=== PATIENT | male | born 1990 | race Caucasian/White ===

== ENCOUNTER 2018-09-20 05:09 | Emergency (ER) | payer SELFPAY ==
[2018-09-20] MEDS ORDERED: 0.9 % SODIUM CHLORIDE 1,000 ML IV ONE ×2 (05:34→06:00)
--- NOTE | 2018-09-20 06:02 | ED Physician Documentation ---
General Adult - HISTORIAN Historian: patient - HPI Stated Complaint: n/v Chief Complaint: Near Syncope Onset: other (unsure of time ) Timing: better Severity: mild Further Comments: yes (He states he did "some coke and 2-3 joints tonight" and then had some n/v and dizziness. He states he still "feels tired" but no other complaints currently . At one point after taking med he did tell the nurse he felt his heart "flutter" but denies any current chest pain or other complaints) Last known Well Code/Unknown Code: Unknown - ROS CONST: no problems NEURO/PSYCH: dizziness - PAST HX Past History: other (anxiety ) Immunizations: UTD Allergies/Adverse Reactions: Allergies Allergy/AdvReac Type Severity Reaction Status Date / Time No Known Allergies Allergy Verified 09/20/18 06:03 Home Medications: Ambulatory Orders Medication Instructions Recorded Lamotrigine [Lamictal Xr] 300 mg PO D 09/20/18 Trazodone HCl [Desyrel] 100 mg PO HS 09/20/18 Venlafaxine HCl [Effexor] 300 mg PO D 09/20/18 - SOCIAL HX Smoking History: cigarettes Alcohol Use: occasionally Drug Use: cocaine, marijuana - FAMILY HX Family History: No - VITAL SIGNS Vital Signs: Vital Signs Temp Pulse Resp BP Pulse Ox 97.8 F 82 18 101/60 96 09/20/18 05:09 09/20/18 05:09 09/20/18 05:09 09/20/18 05:09 09/20/18 05:09 - REVIEWED ASSESSMENTS Nursing Assessment Reviewed: Yes Vitals Reviewed: Yes Progress - Progress Progress: 0655: sleeping in room DG ED Results Lab/Radiology - Radiology Radiology Impressions: Chest, PA and lateral History: Irregular heart rate Findings: No infiltrate, effusion or pneumothorax is present. Heart size, mediastinum and pulmonary vascularity are normal. Impression: No active pulmonary disease. Electronically signed on Sep 20, 2018 6:33:59 AM POISON INFORMATION SPECIALIST by: David Millan - Orders Orders: ED Orders Category Date Time Status IV Started NOW Care 09/20/18 06:00 Ordered CHEST 2VIEW [RAD] Stat Exams 09/20/18 Ordered ALCOHOL MEDICAL USE ONLY Stat Lab 09/20/18 Ordered CBC/PLATELET/DIFF Stat Lab 09/20/18 06:00 Ordered CMP Stat Lab 09/20/18 06:00 Ordered UDS [DRUG SCREEN URINE MEDICAL ONLY] Routine Lab 09/20/18 Ordered 0.9 % Sodium Chloride [Normal Saline] 1,000 ml Med 09/20/18 05:34 Discontinued IV .STK-MED NORMAL SALINE @ 1000 MLS/HR ( 1000ml BOLUS) Med 09/20/18 06:00 Ordered 0.9 % Sodium Chloride [Normal Saline] 1,000 ml IV Q1H EKG WITH COMPARISON Stat Ther 09/20/18 Ordered General Adult Physical Exam - PHYSICAL EXAM GENERAL APPEARANCE: no distress EENT: eye inspection normal, no signs of dehydration NECK: normal inspection RESPIRATORY: no resp distress, chest non-tender, breath sounds normal CVS: reg rate & rhythm, heart sounds normal, equal pulses ABDOMEN: soft, normal bowel sounds, no distension BACK: normal inspection, no CVA tenderness SKIN: warm/dry, normal color EXTREMITIES: non-tender, normal range of motion, no evidence of injury, no edema NEURO: oriented X3 Discharge Clincal Impression: Cocaine use Referrals: Thomas Burk MD [Primary Care Provider] - 2 Days Comments: 1. Dont do drugs 2. Increase fluids 3. Follow up with PCP in 2-4 days 4. Return to ER for any concerns Condition: Stable Disposition: 01 HOME, SELF-CARE Decision to Admit: NO Date of Decison to Admit: 09/20/18 Decision Time: 07:00
--- NOTE | 2018-09-20 06:35 | Diagnostic Imaging Report ---
ANJEL ARMSTRONG [id number] [facility] [address] [place], [place]. [address] Report Submission Date: Sep 20, 2018 6:33:59 AM [employer]UNCTION [employer] Patient Study Name: JEOVANY GERBER Date: Sep 20, 2018 6:05:52 AM [employer] Modality Type: DX Gender: M Description: CHEST : 86 Institution: Physician: ANJEL ARMSTRONG Chest, PA and lateral History: Irregular heart rate Findings: No infiltrate, effusion or pneumothorax is present. Heart size, mediastinum and pulmonary vascularity are normal. Impression: No active pulmonary disease. Electronically signed on Sep 20, 2018 6:33:59 AM JUNCTION MAKER by: David BARRON
[2018-09-20 07:10] VITALS: BP 98/49
[2018-09-21 16:24] LABS: eGFR (Non-African) > 60
[2018-09-21 17:42] LABS: MEAN CORPUSCULAR HEMOGLOBIN 29.3 pg (28.0-34.0)
== END 2018-09-20 07:08 | disposition home or self-care (01) ==
LOC: ED 05:09
DX: F14.90 Cocaine use, unspecified, uncomplicated (principal)
CPT/HCPCS: 36415; 71046; 80053; 80320; 85025; 93005; 96365; 99282; 99284; J7030; G0480; S1016